=== PATIENT | male | born 1955 | race American Indian/Alaskan Native ===

== ENCOUNTER 2017-08-28 09:59 | Emergency (ER) | payer MEDICARE ==
[2017-08-28 10:05] VITALS: BP 135/93
--- NOTE | 2017-08-28 13:18 | Emergency Department Report ---
Eye Injury/Foreign Body - HPI Duration: 2 weeks Eye Location: Bilateral Severity: Moderate Eye Symptoms: Eye Pain: No, Blurred Vision: No, Eye Redness: No, Grinding/ Hammering Metal: No, Used Eye Protection: No, Contact Lens Use: No, Recalls Injury: No, Photophobia: No Other History: pt is 62 y/o male with c/o worseing vision for many weeks. recently having seeing lines in visual field and occasional sherman's. pt denies sherman now. pt denies sob/cp/eye pain. sherman is mostly with reading and watching tv. pt was told many months ago he needed glasses for poor vision but pt states he could not afford them. pt denies fever/chills/pain. ED Review of Systems ROS: Stated complaint: VISION PROBLEM Other details as noted in HPI Comment: All other systems reviewed and negative Constitutional: denies: chills, fever Eyes: vision change. denies: eye pain, eye discharge ENT: denies: ear pain, throat pain Respiratory: denies: cough, shortness of breath, wheezing Cardiovascular: denies: chest pain, palpitations Endocrine: no symptoms reported Gastrointestinal: denies: abdominal pain, nausea, diarrhea Genitourinary: denies: urgency, dysuria Musculoskeletal: denies: back pain, joint swelling, arthralgia Skin: denies: rash, lesions Neurological: denies: headache, weakness, paresthesias Psychiatric: denies: anxiety, depression Hematological/Lymphatic: denies: easy bleeding, easy bruising ED Past Medical Hx - Past Medical History Previous Medical History?: Yes Hx Arthritis: Yes - Surgical History Past Surgical History?: Yes Additional Surgical History: bilat hip replacement - Family History Family history: hypertension - Social History Smoking Status: Never Smoker Substance Use Type: Alcohol Eye Injury Exam - Exam General: Vital signs noted. No distress. Alert and acting appropriately. lungs cta/ nl cv exam. no ttp over sinuses. - Visual Acuity Bilateral Vision Acuity Degree: 20/50 Eye Exam: Neither Injection, Neither Chemosis, Neither Abnormal Pupil, Neither EOMI, Neither Eye Foreign Body, Neither Lid Foreign Body, Neither Mucous Discharge, Neither Purulent Discharge, Neither Corneal Edema, Neither Photophobia ED Course Vital Signs 08/28/17 10:01 Temperature 97.8 F Pulse Rate 84 Respiratory 18 Rate Blood Pressure 135/93 O2 Sat by Pulse 98 Oximetry ED Medical Decision Making - Lab Data Result diagrams: 08/28/17 13:11 08/28/17 13:11 Critical care attestation.: If time is entered above; I have spent that time in minutes in the direct care of this critically ill patient, excluding procedure time. ED Disposition Clinical Impression: Headache, Decreased visual acuity Disposition: DC-01 TO HOME OR SELFCARE Is pt being admited?: No Does the pt Need Aspirin: No Condition: Stable Instructions: Understanding Your Vision (ED) Additional Instructions: pt to see ophtho within 3-5 days. pt to see pcp within 3-5 days. pt to return to er if condition worsens. pt to take tylenol/advil prn. Referrals: PRIMARY CARE, [Primary Care Provider] - 3-5 Days Time of Disposition: 14:12
[2017-08-28 13:21] LABS: Basophils % (Auto) 0.4 % (0.0-1.8); Eosinophils % (Auto) 0.5 % (0.0-4.3); Hematocrit 45.6 % (35.5-45.6); Hemoglobin 14.9 gm/dl (11.8-15.2); Lymphocytes # (Auto) 1.5 K/mm3 (1.2-5.4); Lymphocytes % (Auto) 39.7 % (13.4-35.0); Mean Corpuscular HGB Conc 33 % (32-34); Mean Corpuscular Hemoglobin 29 pg (28-32); Mean Corpuscular Volume 89 fl (84-94); Monocytes # (Auto) 0.3 K/mm3 (0.0-0.8); Monocytes % (Auto) 8.8 % (0.0-7.3); Platelet Count 234 K/mm3 (140-440); Red Blood Count 5.13 M/mm3 (3.65-5.03); Red Cell Distribution Width 14.8 % (13.2-15.2)
[2017-08-28 13:43] LABS: Albumin 3.9 g/dL (3.9-5); BUN/Creatinine Ratio 14; Blood Urea Nitrogen 11 mg/dL (9-20); Calcium 9.5 mg/dL (8.4-10.2); Hemolysis Index 98
[2017-08-28 13:58] LABS: Alanine Aminotransferase 24 units/L (7-56)
== END 2017-08-28 14:15 | disposition home or self-care (01) ==
LOC: ED 09:59
DX: H54.7 Unspecified visual loss (principal); R51 Headache; M19.90 Unspecified osteoarthritis, unspecified site; Z96.643 Presence of artificial hip joint, bilateral
CPT/HCPCS: 36415; 80053; 85025; 99282

== ENCOUNTER 2019-04-14 10:48 | Emergency (ER) | payer MEDICARE ==
[2019-04-14] MEDS ORDERED: MECLIZINE 25 MG TAB PO ONE (11:54)
--- NOTE | 2019-04-14 12:02 | Emergency Department Report ---
ED Dizziness HPI - General Chief Complaint: Dizziness Stated Complaint: DIZZY Time Seen by Provider: 04/14/19 11:48 Source: patient Mode of arrival: Ambulatory Limitations: No Limitations - History of Present Illness Initial Comments: Patient is 63 years old male with no significant past medical history except for hip replacement. Patient presented to the ER complaining of dizziness since yesterday. Patient stated that symptoms started all of a sudden when he changes position from left sided to the right side. Patient denied any headache, blurry vision, ataxia. He should also denied any chest pain, shortness of breath, nausea or vomiting. MD Complaint: dizziness -: Last night Timing: sudden onset Description: sense of movement, "room spinning" History of Same: No History of Trauma: No Severity: moderate Improves With: remaining still Worsens With: position Associated Symptoms: denies other symptoms - Related Data Allergies Allergy/AdvReac Type Severity Reaction Status Date / Time No Known Allergies Allergy Unverified 08/28/17 10:01 ED Review of Systems ROS: Stated complaint: DIZZY Other details as noted in HPI Comment: All other systems reviewed and negative Constitutional: denies: chills, fever Respiratory: denies: orthopnea, shortness of breath, SOB with exertion, wheezing Cardiovascular: denies: chest pain Gastrointestinal: denies: abdominal pain, nausea Neurological: vertigo. denies: headache, weakness, numbness, paresthesias, conf usion ED Past Medical Hx - Past Medical History Previous Medical History?: Yes Hx Arthritis: Yes - Surgical History Past Surgical History?: Yes Additional Surgical History: bilat hip replacement - Social History Smoking Status: Never Smoker Substance Use Type: Alcohol ED Physical Exam - General Limitations: No Limitations General appearance: alert, in no apparent distress - Head Head exam: Present: atraumatic, normocephalic, normal inspection - Eye Eye exam: Present: normal appearance - ENT ENT exam: Present: normal exam, normal orophraynx, mucous membranes moist - Neck Neck exam: Present: normal inspection, full ROM. Absent: tenderness, meningismus, lymphadenopathy, thyromegaly - Respiratory Respiratory exam: Present: normal lung sounds bilaterally - Cardiovascular Cardiovascular Exam: Present: regular rate, normal rhythm, normal heart sounds - GI/Abdominal GI/Abdominal exam: Present: soft, normal bowel sounds. Absent: distended, tenderness, guarding, rebound, rigid, organomegaly, mass, bruit, pulsatile mass, hernia - Extremities Exam Extremities exam: Present: normal inspection, full ROM, normal capillary refill. Absent: pedal edema, calf tenderness - Back Exam Back exam: Present: normal inspection, full ROM. Absent: CVA tenderness (R), CVA tenderness (L), muscle spasm, paraspinal tenderness, vertebral tenderness - Neurological Exam Neurological exam: Present: alert, oriented X3, CN II-XII intact, normal gait, reflexes normal. Absent: motor sensory deficit - Psychiatric Psychiatric exam: Present: normal mood - Skin Skin exam: Present: warm, intact, normal color ED Course Vital Signs 04/14/19 10:52 Temperature 98.2 F Pulse Rate 91 H Respiratory 16 Rate Blood Pressure 156/88 O2 Sat by Pulse 98 Oximetry ED Medical Decision Making - Lab Data Result diagrams: 04/14/19 12:46 04/14/19 12:46 - EKG Data -: EKG Interpreted by Wi EKG shows normal: sinus rhythm Rate: normal - EKG Data Interpretation: no acute changes - Radiology Data Radiology results: report reviewed - Medical Decision Making Patient is 63 years old male with no significant past medical history except for hip replacement. Patient presented to the ER complaining of dizziness since yesterday. Patient stated that symptoms started all of a sudden when he changes position from left sided to the right side. Patient denied any headache, blurry vision, ataxia. He should also denied any chest pain, shortness of breath, nausea or vomiting. Patient received meclizine 25 mg. Patient stated that he started feeling better. EKG is unremarkable. Labs reviewed and is unremarkable. CT brain is negative for acute finding. No clinical evidence of stroke especially posterior circulation stroke at this moment. I believe patient's symptoms is most likely related to positional vertigo given the clinical presentation and a negative CT scan especially with the onset of symptoms 2 days ago. Critical care attestation.: If time is entered above; I have spent that time in minutes in the direct care of this critically ill patient, excluding procedure time. ED Disposition Clinical Impression: Dizziness, Positional vertigo Disposition: DC-01 TO HOME OR SELFCARE Is pt being admited?: No Condition: Stable Instructions: Benign Paroxysmal Positional Vertigo (ED) Referrals: ELDA CORRAL MD [Primary Care Provider] - 3-5 Days
[2019-04-14 13:03] LABS: Basophils % (Auto) 0.7 % (0.0-1.8); Eosinophils % (Auto) 0.1 % (0.0-4.3); Hematocrit 46.6 % (35.5-45.6); Hemoglobin 15.3 gm/dl (11.8-15.2); Lymphocytes # (Auto) 1.3 K/mm3 (1.2-5.4); Lymphocytes % (Auto) 25.8 % (13.4-35.0); Mean Corpuscular HGB Conc 33 % (32-34); Mean Corpuscular Volume 87 fl (84-94); Monocytes # (Auto) 0.4 K/mm3 (0.0-0.8); Platelet Count 249 K/mm3 (140-440); Red Blood Count 5.38 M/mm3 (3.65-5.03); Red Cell Distribution Width 14.6 % (13.2-15.2)
--- NOTE | 2019-04-14 13:14 | Cat Scan Report ---
CT head without contrast INDICATION : Lightheadedness/Dizziness. TECHNIQUE: Axial imaging performed from the skull apex through the skull base without the use of con trast. All CT scans at this location are performed using CT dose reduction for ALARA by means of aut omated exposure control. COMPARISON: None FINDINGS: Parenchyma: No acute intracranial hemorrhage or parenchymal abnormality. A focal hypodensity of the left parietal lobe at the umana-white junction is consistent with a chronic infarct. No mass or mass e ffect. No hemorrhage or edema. No extra-axial collection. Ventricles: Ventricles are mildly enlarged and the frontal and temporal lobe sulci are mildly enlarg ed. Soft tissues: Soft tissues including the orbits appear normal. Bones: No acute osseous abnormality. Sinuses: Sinuses and mastoid air cells are clear. IMPRESSION: 1. No evidence of acute infarct or hemorrhage. 2. A small chronic left parietal lobe infarct. 3. Mild cortical atrophy. Signer Name: Darien Albarado MD Signed: 04/14/2019 1:10 PM Workstation Name: [id number]
[2019-04-14 13:21] LABS: Alanine Aminotransferase 22 units/L (7-56); Albumin 4.2 g/dL (3.9-5); BUN/Creatinine Ratio 14; Blood Urea Nitrogen 14 mg/dL (9-20); Calcium 9.7 mg/dL (8.4-10.2); Hemolysis Index 20
[2019-04-14 13:26] LABS: Bilirubin,Direct < 0.2 mg/dL (0-0.2)
[2019-04-14 13:57] VITALS: BP 138/86
== END 2019-04-14 13:56 | disposition home or self-care (01) ==
LOC: ED 10:48
DX: R42 Dizziness and giddiness (principal); M19.90 Unspecified osteoarthritis, unspecified site; Z98.890 Other specified postprocedural states
CPT/HCPCS: 36415; 70450; 80048; 80076; 84484; 85025; 93005; 93010

== ENCOUNTER 2021-06-28 08:10 | Emergency (ER) | payer MEDICARE ==
[2021-06-28] MEDS ORDERED: MORPHINE 4 MG/1 ML INJ IV ONE (10:19)
[2021-06-28] MEDS ORDERED: ONDANSETRON 4 MG/2 ML INJ IV ONE (10:19)
[2021-06-28] MEDS ORDERED: SODIUM CHLORIDE 0.9% 1000 ML 1,000 ML IV ONE (10:19)
[2021-06-28] MEDS ORDERED: PANTOPRAZOLE 40 MG INJ IV ONE (10:20)
[2021-06-28 10:59] LABS: Bacteria,Urine 1+ /HPF (Negative); Bilirubin,Urine NEG (Negative); Blood,Urine NEG (Negative); Color,Urine Amber (Yellow); Mucus,Urine FEW /HPF
[2021-06-28 11:29] LABS: Basophils % (Auto) 0.3 % (0.0-1.8); Hematocrit 44.1 % (35.5-45.6); Hemoglobin 13.8 gm/dl (11.8-15.2); Lymphocytes # (Auto) 1.5 K/mm3 (1.2-5.4); Lymphocytes % (Auto) 25.9 % (13.4-35.0); Mean Corpuscular HGB Conc 31 % (32-34); Mean Corpuscular Volume 86 fl (84-94); Monocytes # (Auto) 0.4 K/mm3 (0.0-0.8); Monocytes % (Auto) 6.2 % (0.0-7.3); Platelet Count 192 K/mm3 (140-440); Red Blood Count 5.14 M/mm3 (3.65-5.03); Red Cell Distribution Width 14.8 % (13.2-15.2)
[2021-06-28 11:55] LABS: Alanine Aminotransferase 94 units/L (7-56); Albumin 3.8 g/dL (3.9-5); BUN/Creatinine Ratio 17; Blood Urea Nitrogen 20 mg/dL (9-20); Calcium 8.7 mg/dL (8.4-10.2); Hemolysis Index 4
--- NOTE | 2021-06-28 12:33 | Emergency Department Report ---
ED General Adult HPI - General Chief complaint: Abdominal Pain Stated complaint: PAIN - STOMACH AND BACK Time Seen by Provider: 06/28/21 10:07 Source: patient Mode of arrival: Ambulatory Limitations: No Limitations - History of Present Illness Initial comments: Patient is a 65-year-old male presents emergency room complaints of upper abdominal pain that began 2 weeks ago. He also has been experiencing some back pain. He denies any fever, nausea, vomiting, diarrhea, hematochezia, melena, hematemesis, urinary symptoms. He states he had a colonoscopy approximately a year ago and states he believes it was normal. Patient states he has borderline diabetes. No allergies medications. Severity scale (0 -10): 6 - Related Data Previous Rx's Medication Instructions Recorded Last Taken Type Meclizine [Antivert] 25 mg PO TID PRN #30 tablet 04/14/19 Unknown Rx Azithromycin [Zithromax TAB] 250 mg PO QDAY 5 Days #6 tablet 06/28/21 Unknown Rx Dexamethasone 6 mg PO DAILY 7 Days #7 tab 06/28/21 Unknown Rx Famotidine [Pepcid] 40 mg PO QHS #30 tab 06/28/21 Unknown Rx Allergies Allergy/AdvReac Type Severity Reaction Status Date / Time No Known Allergies Allergy Unverified 08/28/17 10:01 ED Review of Systems ROS: Stated complaint: PAIN - STOMACH AND BACK Other details as noted in HPI Comment: All other systems reviewed and negative ED Past Medical Hx - Past Medical History Hx Arthritis: Yes - Surgical History Additional Surgical History: bilat hip replacement - Social History Smoking Status: Never Smoker Substance Use Type: Alcohol - Medications Home Medications: Home Medications Medication Instructions Recorded Confirmed Last Taken Type Meclizine [Antivert] 25 mg PO TID PRN #30 tablet 04/14/19 Unknown Rx Azithromycin [Zithromax TAB] 250 mg PO QDAY 5 Days #6 tablet 06/28/21 Unknown Rx Dexamethasone 6 mg PO DAILY 7 Days #7 tab 06/28/21 Unknown Rx Famotidine [Pepcid] 40 mg PO QHS #30 tab 06/28/21 Unknown Rx ED Physical Exam - General Limitations: No Limitations General appearance: alert, in no apparent distress - Head Head exam: Present: atraumatic, normocephalic - Eye Eye exam: Present: normal appearance - ENT ENT exam: Present: mucous membranes moist - Respiratory Respiratory exam: Present: normal lung sounds bilaterally. Absent: respiratory distress, wheezes, rales, rhonchi, stridor, chest wall tenderness, accessory muscle use, decreased breath sounds, prolonged expiratory - Cardiovascular Cardiovascular Exam: Present: regular rate, normal rhythm, normal heart sounds. Absent: systolic murmur, diastolic murmur, rubs, gallop - GI/Abdominal GI/Abdominal exam: Present: soft, normal bowel sounds. Absent: distended, tenderness, guarding, rebound, rigid - Neurological Exam Neurological exam: Present: alert, oriented X3 - Psychiatric Psychiatric exam: Present: normal affect, normal mood - Skin Skin exam: Present: warm, dry, intact ED Course Vital Signs 06/28/21 08:28 Temperature 98.9 F Pulse Rate 91 H Respiratory 18 Rate Blood Pressure 133/75 [Right] O2 Sat by Pulse 98 Oximetry ED Medical Decision Making - Lab Data Result diagrams: 06/28/21 10:56 06/28/21 10:56 Lab Results 06/28/21 06/28/21 06/28/21 Range/Units 10:56 10:56 Unknown WBC 5.9 (4.5-11.0) K/mm3 RBC 5.14 H (3.65-5.03) M/mm3 Hgb 13.8 (11.8-15.2) gm/dl Hct 44.1 (35.5-45.6) % MCV 86 (84-94) fl MCH 27 L (28-32) pg MCHC 31 L (32-34) % RDW 14.8 (13.2-15.2) % Plt Count 192 (140-440) K/mm3 Lymph % (Auto) 25.9 (13.4-35.0) % [place] % (Auto) 6.2 (0.0-7.3) % Eos % (Auto) 0.0 (0.0-4.3) % Baso % (Auto) 0.3 (0.0-1.8) % Lymph # (Auto) 1.5 (1.2-5.4) K/mm3 [place] # (Auto) 0.4 (0.0-0.8) K/mm3 Eos # (Auto) 0.0 (0.0-0.4) K/mm3 Baso # (Auto) 0.0 (0.0-0.1) K/mm3 Seg Neutrophils % 67.6 (40.0-70.0) % Seg Neutrophils # 4.0 (1.8-7.7) K/mm3 Sodium 136 L (137-145) mmol/L Potassium 4.1 (3.6-5.0) mmol/L Chloride 100.5 (98-107) mmol/L Carbon Dioxide 21 L (22-30) mmol/L Anion Gap 19 mmol/L BUN 20 (9-20) mg/dL Creatinine 1.2 (0.8-1.3) mg/dL Estimated GFR > 60 ml/min BUN/Creatinine Ratio 17 % Glucose 103 H (75-100) mg/dL Calcium 8.7 (8.4-10.2) mg/dL Total Bilirubin 0.40 (0.1-1.2) mg/dL AST 111 H (5-40) units/L ALT 94 H (7-56) units/L Alkaline Phosphatase 74 (35-129) units/L Total Protein 8.1 (6.3-8.2) g/dL Albumin 3.8 L (3.9-5) g/dL Albumin/Globulin Ratio 0.9 % Lipase 50 (13-60) units/L Urine Color Merary (Yellow) Urine Turbidity Slightly-cloudy (Clear) Urine pH 5.0 (5.0-7.0) Ur Specific [place]lin 1.021 (1.003-1.030) Urine Protein 30 mg/dl (Negative) mg/dL Urine Glucose (UA) Neg (Negative) mg/dL Urine Ketones Tr (Negative) mg/dL Urine Blood Neg (Negative) Urine Nitrite Neg (Negative) Urine Bilirubin Neg (Negative) Urine Urobilinogen 4.0 (<2.0) mg/dL Ur Leukocyte Esterase Neg (Negative) Urine WBC (Auto) 2.0 (0.0-6.0) /HPF Urine RBC (Auto) 1.0 (0.0-6.0) /HPF Urine Bacteria (Auto) 1+ (Negative) /HPF Urine Mucus Few /HPF - Radiology Data Radiology results: report reviewed Ordering Physician: JAKE ACOSTA Date of Service: 06/28/21 Procedure(s): CT abdomen pelvis w con Accession Number(s): [id number] cc: JAKE ACOSTA CT ABDOMEN AND PELVIS WITH CONTRAST INDICATION / CLINICAL INFORMATION: upper abd pain, back pain OMNI 300 100 ML. TECHNIQUE: Axial CT images were obtained through the abdomen and pelvis after 100 cc Omnipaque [address] scans at this location are performed using CT dose reduction for ALARA by means of automated exposure control. COMPARISON: None available. FINDINGS: LOWER CHEST: Increased opacification the bilateral lung bases. AORTA / ARTERIES: Mild atherosclerotic calcification without acute abnormality. IVC / VEINS: No significant abnormality. LYMPH NODES: No significant adenopathy. COLON: No significant abnormality. APPENDIX: No significant abnormality. STOMACH / SMALL BOWEL: There is a mild hiatal hernia. No significant abnormality of the stomach or small bowel. PERITONEUM: No free fluid. No free air. No fluid collection. LIVER: No significant abnormality. GALLBLADDER: No significant abnormality. BILE DUCTS: No significant abnormality. PANCREAS: No significant abnormality. SPLEEN: No significant abnormality. ADRENALS: No significant abnormality. RIGHT KIDNEY / URETER: No significant abnormality. LEFT KIDNEY / URETER: No significant abnormality. URINARY BLADDER: Partially obscured by streak artifact, otherwise unremarkable. REPRODUCTIVE ORGANS: Obscured by streak artifact. SKELETAL SYSTEM: No significant abnormality. ADDITIONAL FINDINGS: Incidentally noted bilateral fat containing Bochdalek hernias. IMPRESSION: 1. Small hiatal hernia. 2. Increased opacifications within bilateral lung bases which may represent atelectasis; however, infectious process should be considered in the appropriate clinical setting. 3. Bilateral fat-containing Bochdalek hernias. Signer Name: Abilio Silver DO Signed: 06/28/2021 2:21 PM Workstation Name: [id number] Transcribed By: SHAINA Dictated By: ABILIO SILVER DO Electronically Authenticated By: ABILIO SILVER DO Signed Date/Time: 06/28/21 1421 DD/ 1415 TD/TT: - Medical Decision Making Patient is a 65-year-old male presents emergency room complaints of upper abdom inal pain that began 2 weeks ago. He also has been experiencing some back pain. He denies any fever, nausea, vomiting, diarrhea, hematochezia, melena, hematemesis, urinary symptoms. He states he had a colonoscopy approximately a year ago and states he believes it was normal. Patient states he has borderline diabetes. No allergies medications. Vitals are stable. No abdominal tenderness on exam. Labs with mildly elevated LFTs. UA without evidence of significant UTI. CT abdomen pelvis IV contrast 1. Small hiatal hernia. 2. Increased opacifications within bilateral lung bases which may represent atelectasis; however, infectious process should be considered in the appropriate clinical setting. 3. Bilateral fat-containing Bochdalek hernias. Given the bilateral opacifications and mildly elevated LFTs, this could be related to COVID-19 pneumonia. Discussed all findings with patient. Patient was given medications on the emergency department with improvement of symptoms and he was able to tolerate p.o. intake without difficulty. Advised patient Please take medication as prescribed. Increase your fluid intake. Follow-up with your primary care doctor. Follow-up with a GI doctor. Return to emergency room for any new or worsening symptoms. Recommend outpatient COVID-19 testing and if positive please self quarantine in accordance with the CDC guidelines Critical care attestation.: If time is entered above; I have spent that time in minutes in the direct care of this critically ill patient, excluding procedure time. ED Disposition Clinical Impression: Elevated LFTs, Suspected COVID-19 virus infection, Bilateral pulmonary infiltrates on chest x-ray, Hiatal hernia Abdominal pain Qualifiers: Abdominal location: upper abdomen, unspecified Qualified Code(s): R10.10 - Upper abdominal pain, unspecified Back pain Qualifiers: Back pain location: back pain in unspecified location Chronicity: acute Back pain laterality: unspecified Qualified Code(s): M54.9 - Dorsalgia, unspecified Disposition: 01 HOME / SELF CARE / HOMELESS Is pt being admited?: No Does the pt Need Aspirin: No Condition: Stable Additional Instructions: Please take medication as prescribed. Increase your fluid intake. Follow-up with your primary care doctor. Follow-up with a GI doctor. Return to emergency room for any new or worsening symptoms. Recommend outpatient COVID-19 testing and if positive please self quarantine in accordance with the CDC guidelines Prescriptions: Famotidine [Pepcid] 40 mg PO QHS #30 tab Dexamethasone 6 mg PO DAILY 7 Days #7 tab Azithromycin [Zithromax TAB] 250 mg PO QDAY 5 Days #6 tablet Referrals: PRIMARY CARE, [Primary Care Provider] - 3-5 Days [facility] [Provider Group] - 3-5 Days Time of Disposition: 14:44 Print Language: ARMENIAN
--- NOTE | 2021-06-28 14:26 | Cat Scan Report ---
CT ABDOMEN AND PELVIS WITH CONTRAST INDICATION / CLINICAL INFORMATION: upper abd pain, back pain OMNI 300 100 ML. TECHNIQUE: Axial CT images were obtained through the abdomen and pelvis after 100 cc Omnipaque [address] scans at this location are performed using CT dose reduction for ALARA by means of automated exposure control. COMPARISON: None available. FINDINGS: LOWER CHEST: Increased opacification the bilateral lung bases. AORTA / ARTERIES: Mild atherosclerotic calcification without acute abnormality. IVC / VEINS: No significant abnormality. LYMPH NODES: No significant adenopathy. COLON: No significant abnormality. APPENDIX: No significant abnormality. STOMACH / SMALL BOWEL: There is a mild hiatal hernia. No significant abnormality of the stomach or sm all bowel. PERITONEUM: No free fluid. No free air. No fluid collection. LIVER: No significant abnormality. GALLBLADDER: No significant abnormality. BILE DUCTS: No significant abnormality. PANCREAS: No significant abnormality. SPLEEN: No significant abnormality. ADRENALS: No significant abnormality. RIGHT KIDNEY / URETER: No significant abnormality. LEFT KIDNEY / URETER: No significant abnormality. URINARY BLADDER: Partially obscured by streak artifact, otherwise unremarkable. REPRODUCTIVE ORGANS: Obscured by streak artifact. SKELETAL SYSTEM: No significant abnormality. ADDITIONAL FINDINGS: Incidentally noted bilateral fat containing Bochdalek hernias. IMPRESSION: 1. Small hiatal hernia. 2. Increased opacifications within bilateral lung bases which may represent atelectasis; however, inf ectious process should be considered in the appropriate clinical setting. 3. Bilateral fat-containing Bochdalek hernias. Signer Name: Abilio Silver DO Signed: 06/28/2021 2:21 PM Workstation Name: [id number]
[2021-06-28 15:38] VITALS: BP 119/59
== END 2021-06-28 15:48 | disposition home or self-care (01) ==
LOC: ED 08:10
DX: R79.89 Other specified abnormal findings of blood chemistry (principal); Z20.822 Contact with and (suspected) exposure to COVID-19; R91.8 Other nonspecific abnormal finding of lung field; K44.9 Diaphragmatic hernia without obstruction or gangrene
CPT/HCPCS: 36415; 74177; 80053; 81001; 83690; 85025; 96361; 96374; 96375; 99284; C9113; J2270; J2405; J7030; Q0162; Q9967